=== PATIENT | male | born 1955 ===

== ENCOUNTER 2022-04-24 09:31 | Outpatient (CLI) | payer MEDICARE, SELFPAY ==
--- NOTE | 2022-04-24 09:30 | RT.EKG_ITS ---
APPROVED REPORT Exam: Resting ECG Reason for Exam: CAD Patient Location: O HR:73 bpm ECG Measurements Heart Rate 73 AXIS DC 185 P 28 QRSd 126 QRS -35 QT 382 T 88 QTc 421 Conclusion Sinus rhythm...normal P axis, V-rate 50- 99 Left atrial enlargement...P, P'>60mS, <-0.15mV V1 Nonspecific intraventricular conduction delay...QRSd >115mS, not LBBB/RBBB Inferior infarct, old...Q >35mS, II III aVF Consider posterior infarct
== END 2022-04-24 09:32 | disposition home or self-care (01) ==
LOC: DI.CARD 09:32
PROVIDERS: PCP Physician Assistant Medical; Visit Provider Internal Medicine Cardiovascular Disease
DX: I25.10 Atherosclerotic heart disease of native coronary artery without angina pectoris (principal); R94.31 Abnormal electrocardiogram [ECG] [EKG]; I25.2 Old myocardial infarction
CPT/HCPCS: 93010

== ENCOUNTER → 2022-04-24 11:02 | Outpatient (BNVA) | payer MEDICARE, SELFPAY | PROVIDERS: PCP Physician Assistant Medical; Referring Provider Physician Assistant Medical; Visit Provider Internal Medicine Cardiovascular Disease | DX: I25.2 Old myocardial infarction (principal); I25.10 Atherosclerotic heart disease of native coronary artery without angina pectoris; I10 Essential (primary) hypertension; I25.5 Ischemic cardiomyopathy | CPT/HCPCS: 93005; 99203 ==